=== PATIENT | male | born 1970 | race Caucasian/White ===

== ENCOUNTER 2022-05-08 17:35 | Emergency (ER) | payer BC, MEDICAID ==
[~2022-05-08] VITALS: Ht 167.6 cm; Wt 190.5 kg
[2022-05-08] MEDS ORDERED: KETOROLAC TROMETHAMINE INJ 60 MG/2 ML VIAL IM ONE (19:00)
[2022-05-08] MEDS ORDERED: CYCLOBENZAPRINE 10 MG TABLET PO ONE (19:00)
[2022-05-08] MEDS ORDERED: KETOROLAC TROMETHAMINE INJ 30 MG/ML VIAL ONE (19:23)
[2022-05-08] MEDS ORDERED: CYCLOBENZAPRINE 10 MG TABLET ONE (19:24)
[2022-05-08] MEDS ORDERED: KETO10TA2 PO (20:53)
[2022-05-08] MEDS ORDERED: CYCL5TAB PO (20:53)
--- NOTE | 2022-05-08 20:57 | NUR ---
Patient discharged to home in stable condition. Written and verbal after care instructions given. Patient verbalizes understanding of instruction. Pt ambulatory with a steady gait
[2022-05-08 21:08] VITALS: BP 128/83
== END 2022-05-08 21:08 | disposition home or self-care (01) ==
LOC: ER 17:37
DX: M54.50 Low back pain, unspecified (principal); Z79.899 Other long term (current) drug therapy; Z88.0 Allergy status to penicillin; Z88.8 Allergy status to other drugs, medicaments and biological substances
CPT/HCPCS: 99285; 72131; 96372; J1885